=== PATIENT | female | born 1970 | race Hispanic/Latino ===

== ENCOUNTER 2024-03-25 11:48 | Emergency (ER) | payer MEDICAID, OTHER ==
[~2024-03-25 11:48] MED LIST: Iopamidol 300 61% 100 ML VIAL FS ONE
[2024-03-25 13:18] LABS: #Basophils 0.02 10x3/uL (0.0-0.2); #Eosinphils 0.04 10x3/uL (0.0-0.5); #Neutrophils 6.44 10x3/uL (1.5-8.4); %Basophils 0.2 % (0.0-2.0); %Eosinophils 0.5 % (0.0-6.0); %Lymphocytes 19.9 % (18.0-47.0); %Monocytes 5.7 % (0.0-10.0); %Neutrophils 73.5 % (40.0-75.0); Hematocrit 31.2 % (34.9-44.5); Mean Corpuscular HGB CONC 32.1 g/dL (32.0-36.0); Mean Corpuscular Hemoglobin 28.4 pg (27.0-33.0); Mean Corpuscular Volume 88.6 fL (81.6-98.3); Mean Platelet Volume 9.7 fL (7.4-10.4); Platelet Count 323 10x3/uL (150-450); RBC Distribution Width 14.4 % (11.5-14.5); Red Blood Cell (RBC) Count 3.52 10x6/uL (3.90-5.03); White Blood Cell (WBC) Count 8.8 10x3/uL (3.5-10.5)
[2024-03-25 13:25] LABS: ALT (SGPT) 80 U/L (8-55); AST (SGOT) 108 U/L (5-34); Albumin 3.3 g/dL (3.5-5.0); Alkaline Phosphatase 89 U/L (40-110); Anion Gap 13 mmol/L (10-20); BUN (Urea Nitrogen) 14 mg/dL (9.8-20.1); Bilirubin, Total 0.4 mg/dL (0.2-1.2); Calc. Creatinine Clearance 0 mL/min (70-130); Calcium 8.5 mg/dL (7.8-10.44); Carbon Dioxide 26 mmol/L (22-29); Chloride 105 mmol/L (98-107); Estimated GFR 103; Globulin 3.3 g/dL (2.4-3.5); Glucose 97 mg/dL (70-105); Potassium 3.1 mmol/L (3.5-5.1); Protein, Total 6.6 g/dL (6.0-8.3); Sodium 141 mmol/L (136-145)
[2024-03-25] MEDS ORDERED: Potassium Chloride 20 MEQ TAB ONE (13:53)
== END 2024-03-25 14:17 | disposition home or self-care (01) ==
LOC: CSHERS 11:48
DX: K11.20 Sialoadenitis, unspecified (principal); K04.7 Periapical abscess without sinus; E87.6 Hypokalemia; M27.2 Inflammatory conditions of jaws; Z75.3 Unavailability and inaccessibility of health-care facilities
CPT/HCPCS: 70491; 80053; 85025; Q9967

== ENCOUNTER 2025-08-10 04:25 | Emergency (ER) | payer OTHER ==
[2025-08-10 04:50] LABS: #Basophils 0.04 10x3/uL (0.0-0.2); #Eosinophils 0.19 10x3/uL (0.0-0.5); #Monocytes 0.87 10x3/uL (0.0-1.1); #Neutrophils 5.03 10x3/uL (1.5-8.4); %Basophils 0.3 % (0.0-2.0); %Eosinophils 1.6 % (0.0-6.0); %Lymphocytes 48.4 % (18.0-47.0); %Monocytes 7.3 % (0.0-10.0); %Neutrophils 42.2 % (40.0-75.0); Hematocrit 42.7 % (34.9-44.5); Hemoglobin 14.5 g/dL (12.0-15.5); Mean Corpuscular Hemoglobin 31.1 pg (27.0-33.0); Mean Corpuscular Volume 91.6 fL (81.6-98.3); Platelet Count 358 10x3/uL (150-450); Red Blood Cell (RBC) Count 4.66 10x6/uL (3.90-5.03); White Blood Cell (WBC) Count 11.93 10x3/uL (3.5-10.5)
[2025-08-10] MEDS ORDERED: Droperidol 5 MG/2 ML VIAL ONE (04:51)
[2025-08-10 05:06] LABS: ALT (SGPT) 34 U/L (Less than 34); AST (SGOT) 57 U/L (11-34); Albumin 4.3 g/dL (3.1-4.5); Alkaline Phosphatase 106 U/L (40-110); Anion Gap 14 mmol/L (10-20); BUN (Urea Nitrogen) 19 mg/dL (9.8-20.1); Bilirubin, Total 0.3 mg/dL (0.3-1.2); Calc. Creatinine Clearance 0 mL/min (70-130); Calcium 9.6 mg/dL (7.8-10.44); Carbon Dioxide 21 mmol/L (22-29); Chloride 104 mmol/L (98-107); Globulin 4.2 g/dL (2.4-3.5); Glucose 87 mg/dL (70-105); Lipase 60 U/L (8-78); Potassium 4.2 mmol/L (3.5-5.1); Sodium 135 mmol/L (136-145)
== END 2025-08-10 07:02 | disposition home or self-care (01) ==
LOC: CSHERS 04:25
DX: R11.16 Cannabis hyperemesis syndrome (principal)
CPT/HCPCS: 80053; 83690; 85025; 93005; J1790; 96374